=== PATIENT | female | born 1980 | race Caucasian/White ===

== ENCOUNTER 2016-07-16 09:00 | Emergency (ER) | payer OTHER ==
[~2016-07-16] VITALS: Ht 154.9 cm; Wt 72.6 kg
--- NOTE | 2016-07-16 09:26 | ED HAND/WRIST INJURY COMPLAINT ---
History of Present Illness General Chief Complaint: Hand or Wrist Injury Stated Complaint: RIGHT 5TH DIGIT PAIN Source: patient Exam Limitations: no limitations Vital Signs & Intake/Output Vital Signs & Intake/Output Vital Signs Date Time Temp Pulse Resp B/P B/P Pulse O2 O2 Flow FiO2 Mean Ox Delivery Rate 07/16 1125 97.3 78 16 108/64 07/16 0904 67.3 77 18 123/85 100 Room Air Allergies Coded Allergies: MDX - SULFA (sulfonamide) (01/23/10) Uncoded Allergies: Allergy Other N Food Allergies N Med Allergies SULFA Triage Note: PT TO ED FOR R PINKY FINGER PAIN. PINKY APPEARS SLIGHTLY SWOLLEN. PT REFUSING MOTRIN AND TYLENOL IN TRIAGE "ILL WAIT BECAUSE I MIGHT NEED SOMETHING STRONGER" Triage Nurses Notes Reviewed? yes : No Patient currently breastfeeds: No HPI: 35-year-old female arrived to room 11 for evaluation of right fifth finger pain. She jammed it yesterday at home. Today it is swollen, painful and ecchymotic. The pain is 5-7 at this time and she does not want anything for pain. Movement and palpation makes the pain worse. (JAIRO HUDDLESTON APRN) Past History Travel History Traveled to [place] past 21 day No Medical History Any Pertinent Medical History? see below for history Neurological: NONE EENT: NONE Cardiovascular: NONE Respiratory: NONE Gastrointestinal: NONE Hepatic: NONE Renal: NONE Musculoskeletal: rheumatoid arthritis Psychiatric: NONE Endocrine: NONE Blood Disorders: NONE Cancer(s): NONE Surgical History Surgical History: Psychosocial History What is your primary language Par[place]ayan Tobacco Use: Never used ETOH Use: occasional use Illicit Drug Use: denies illicit drug use Family History Hx Contributory? No (JAIRO HUDDLESTON APRN) Review of Systems Review of Systems Constitutional: Reports: no symptoms. EENTM: Reports: no symptoms. Respiratory: Reports: no symptoms. Cardiovascular: Reports: no symptoms. GI: Reports: no symptoms. Genitourinary: Reports: no symptoms. Musculoskeletal: Reports: see HPI, joint pain. Skin: Reports: no symptoms. Neurological/Psychological: Reports: no symptoms. Hematologic/Endocrine: Reports: no symptoms. Immunologic/Allergic: Reports: no symptoms. All Other Systems: Reviewed and Negative (JAIRO HUDDLESTON APRN) Physical Exam Physical Exam General Appearance: well developed/nourished, mild distress Head: atraumatic Eyes: Bilateral: PERRL, EOMI. Ears, Nose, Throat: normal pharynx, normal ENT inspection, hearing grossly normal Neck: normal inspection, supple Cardiovascular/Respiratory: normal breath sounds, regular rate/rhythm Back: normal inspection Wrist Left: normal range of motion, normal inspection Wrist Right: normal range of motion, normal inspection Hand Left: normal inspection, normal range of motion Hand Right: 5th finger (ECCHYMOTIC, TENDERNESS, SWELLI) Neurologic/Tendon: normal sensation, normal motor functions, normal tendon functions Skin: intact, normal color, warm/dry Lymphatic: no anterior cervical brenda (JAIRO HUDDLESTON APRN) Progress Differential Diagnosis: contusion, fracture Plan of Care: Orders Procedure Date/time Status XRY-FINGERS, RIGHT 07/16 924 Active Radiology Impression: see below Comments: Soft read on x-ray suspected finger fracture but not officially read. Explained finger x-ray to Kilo and I explained we are treating like it is fractured since she has been waiting so long. Finger splint applied by RN and instructions given for ice, ibuprofen and use of splint. She will follow-up with Dr. Kruger if pain, edema, swelling do not decrease. PATIENT: KILO STEELE PRESENT AGE: 35 PATIENT ACCOUNT NO: [id number] : 78 LOCATION: [facility] ORDERING PHYSICIAN: JAIRO HUDDLESTON APRN SERVICE DATE: 07/16/16 EXAM TYPE: RAD - XRY-FINGERS, RIGHT EXAMINATION: FINGER 3 VIEWS, RIGHT CLINICAL INFORMATION: Right fifth digit pain. COMPARISON: None. TECHNIQUE: A PA view of the right hand is provided along with two views of the fifth digit. FINDINGS: There is soft tissue swelling to the fifth digit. There are no acute fractures. IMPRESSION: Soft tissue swelling without fracture or dislocation. DICTATED BY: ALEXA YUSUF MD DATE/TIME DICTATED:07/16/161124 WATER RESTORATION TECHNICIAN:NELY DATE/TIME TRANSCRIBED:07/16/161124 CONFIDENTIAL, DO NOT COPY WITHOUT APPROPRIATE AUTHORIZATION. <Electronically signed in Other Vendor System> SIGNED BY: ALEXA YUSUF MD 07/16/16 1130 (JAIRO HUDDLESTON APRN) Departure Departure Time of Disposition: 1123 Disposition: HOME OR SELF CARE Condition: Stable Clinical Impression Primary Impression: Finger fracture, right Qualifiers: Encounter type: initial encounter Finger: little finger Fracture type: closed Phalanx: middle Fracture alignment: nondisplaced Qualified Code: S62.656A - Nondisplaced fracture of medial phalanx of right little finger, initial encounter for closed fracture Referrals: LUCAS KRUGER MD Additional Instructions: Ice to right finger 3-4 times a day for the next 3-4 days he had ibuprofen, Motrin, Advil as directed for the next 3-4 days. Use finger splint for comfort over the next 4-5 days. If pain, swelling gets worse please follow-up with Dr. Kruger. Departure Forms: Customer Survey General Discharge Information (JAIRO HUDDLESTON APRN) PA/GUN PROFILER Co-Sign Statement Statement: ED Attending supervision documentation- [] I saw and evaluated the patient. I have also reviewed all the pertinent lab results and diagnostic results. I agree with the findings and the plan of care as documented in the PA's/GUN PROFILER's documentation. [X] I have reviewed the ED Record and agree with the PA's/GUN PROFILER's documentation. [] Additions or exceptions (if any) to the PAs/GUN PROFILER's note and plan are summarized below: [] (SHAYY LUCERO,PATRICIA Higgins) Procedures Splinting Location: right fifth finger Manual Alignment Performed: No Pre-Made Type: finger splint Splint: finger splint Splint Applied By: splint applied by other (RN) Pre-Proc Neuro Vasc Exam: normal Post-Proc Neuro Vasc Exam: normal Progress: patient tolerated finger splint, (JAIRO HUDDLESTON APRN)
[2016-07-16 11:25] VITALS: BP 108/64
--- NOTE | 2016-07-16 11:30 | RADIOLOGY REPORT ---
EXAMINATION: FINGER 3 VIEWS, RIGHT CLINICAL INFORMATION: Right fifth digit pain. COMPARISON: None. TECHNIQUE: A PA view of the right hand is provided along with two views of the fifth digit. FINDINGS: There is soft tissue swelling to the fifth digit. There are no acute fractures. IMPRESSION: Soft tissue swelling without fracture or dislocation.
== END 2016-07-16 11:32 ==
LOC: ERH 09:00
DX: S62.606A Fracture of unspecified phalanx of right little finger, initial encounter for closed fracture (principal); W23.1XXA Caught, crushed, jammed, or pinched between stationary objects, initial encounter; Y93.9 Activity, unspecified; Y92.009 Unspecified place in unspecified non-institutional (private) residence as the place of occurrence of the external cause
CPT/HCPCS: 73140-RT